=== PATIENT | male | born 1945 | race Caucasian/White ===

== ENCOUNTER 2018-10-24 07:04 | Emergency (ER) | payer OTHER, BC ==
[~2018-10-24] VITALS: Ht 177.8 cm; Wt 77.1 kg
[2018-10-24] MEDS ORDERED: SIMVASTATIN40 MG (07:39)
[2018-10-24] MEDS ORDERED: FORTAMET500 MG (07:39)
[2018-10-24] MEDS ORDERED: XARELTO10 MG (07:39)
[2018-10-24] MEDS ORDERED: ASPIR 8181 MG (07:39)
[2018-10-24] MEDS ORDERED: AMOX-CLAV 875-1 EACH (07:40)
[2018-10-24] MEDS ORDERED: METOPROLOL SUCC25 MG (07:40)
== END 2018-10-24 09:11 | disposition home or self-care (01) ==
LOC: ER 07:04
DX: R04.0 Epistaxis (principal)